=== PATIENT | female | born 1965 | race Caucasian/White ===

== ENCOUNTER 2018-10-26 07:11 | Day surgery (SDC) | payer MEDICARE, OTHER ==
[2018-10-26] MEDS ORDERED: LACTATED RINGERS 1,000 ML IV ONE (08:29)
[2018-10-26] MEDS ORDERED: ENOXAPARIN SODIUM 40 MG/0.4 ML DISP.SYRIN SQ ONE (08:29)
[2018-10-26] MEDS ORDERED: FAMOTIDINE 20 MG/2 ML VIAL ONE (08:34)
[2018-10-26] MEDS ORDERED: MIDAZOLAM HCL 2 MG/2 ML VIAL ONE (08:48)
== END 2018-10-26 10:30 | disposition home or self-care (01) ==
LOC: OPSURG 07:11
PROVIDERS: ATTEND Surgery
DX: Z53.8 Procedure and treatment not carried out for other reasons (principal)
CPT/HCPCS: J1650; J2250; J7120